=== PATIENT | female | born 1990 | race African-American/Black ===

== ENCOUNTER 2017-03-10 12:50 | Emergency (ER) | payer MEDICAID ==
[~2017-03-10] VITALS: Ht 160 cm; Wt 52.0 kg
[2017-03-10 13:27] VITALS: BP 116/69
== END 2017-03-10 15:31 | disposition home or self-care (01) ==
LOC: ER 14:38
DX: Z48.00 Encounter for change or removal of nonsurgical wound dressing (principal); N75.0 Cyst of Bartholin's gland
CPT/HCPCS: 99283